=== PATIENT | female | born 1975 | race Caucasian/White ===

== ENCOUNTER 2022-04-26 15:14 | Outpatient (REF) | payer BC, SELFPAY ==
[2022-04-26 15:15] LABS: Abs Immature Grans 0.01 10^3/uL (0.0-0.06); Absolute Basophil Count 0.02 10^3/uL (0.0-0.2); Absolute Eosinophil Count 0.11 10^3/uL (0.0-0.7); Absolute Monocyte Count 0.32 10^3/uL (0.1-0.8); Basophils % 0.5; Eosinophils % 2.6; HCT 41.5 % (36.0-46.0); HGB 13.3 g/dL (11.2-15.7); Immature Grans % 0.2; Lymphocytes % 32.9; MCH 25.2 pg (27.0-33.0); MCV 79 fL (80-95); MPV 10.2 fL (8.0-11.0); Monocytes % 7.5; Neutrophils % 56.3; Platelet Count 284 10^3/uL (130-400); RBC 5.27 10^6/uL (3.93-5.22); RDW 14.5 % (11.7-14.6); RDW-SD 41.1 fL; WBC 4.26 10^3/uL (4.4-10.8)
[2022-04-26 15:35] LABS: Hemoglobin A1C 5.8 % (<5.7)
[2022-04-26 16:03] LABS: ALT 23 U/L (14-59); AST 17 U/L (15-37); Albumin 3.8 g/dL (3.4-5.0); Alkaline Phosphatase 57 U/L (46-116); Anion Gap 11.6 mmol/L (3-11); BUN 11 mg/dL (7-18); Bilirubin, Total 0.3 mg/dL (0.2-1.0); CO2 25.4 mmol/L (21.0-32.0); CREATININE 0.8 mg/dL (0.55-1.02); Calcium 9.2 mg/dL (8.5-10.1); Chloride 104 mmol/L (98-107); Estimated GFR 90.27 (mL/min/1.73m2); Glucose 103 mg/dL (74-106); Potassium 4.4 mmol/L (3.5-5.1); Sodium 141 mmol/L (136-145); TSH (W/Ref FT4) 2.64 uIU/mL (0.36-3.74); Total Protein 6.8 g/dL (6.4-8.2)
[2022-04-26 16:20] LABS: Iron 41 ug/dL (50-170); Total Iron Binding Capacity 344 ug/dL (250-450); Transferrin Sat 12 % (15-50)
== END 2022-04-26 15:15 | disposition home or self-care (01) ==
LOC: NCHCN 15:14
PROVIDERS: PCP Nurse Practitioner Family; Visit Provider Nurse Practitioner Family
DX: R73.09 Other abnormal glucose (principal); Z83.49 Family history of other endocrine, nutritional and metabolic diseases
CPT/HCPCS: 80053; 83036; 83540; 83550; 84443; 85025

== ENCOUNTER 2022-06-21 00:05 | Outpatient (CLI) | payer BC, SELFPAY ==
--- NOTE | 2022-06-21 07:50 | DI.MAMMO_ITS ---
Exam(s) MAMMO SCREENING EXAM: MAMMO SCREENING CLINICAL HISTORY: SCREENING, Z12.39, PREVENTIVE HEALTH CARE,Z00.00 TECHNIQUE: Mammograms were interpreted according to the usual protocol including computer analysis w [employer] CAD system, tomosynthesis and C-view imaging. COMPARISON: 2013 through 2021 from [facility] FINDINGS: The breasts are composed of scattered fibroglandular densities, Breast Density category B. No suspicious masses or suspicious microcalcifications are seen. No skin thickening or abnormal axillary lymph nodes are seen. There has been no significant change from prior exams. IMPRESSION: BI-RADS Category 1, Negative mammogram Yearly screening mammography is recommended. Breast Density - Category B, scattered fibroglandular densities. A negative radiographic report should not delay biopsy if a dominant or clinically suspicious mass is present. Up to ten percent of cancers are not identified on mammography. A negative report may reinforce clinical impression. Adenosis and dense breasts may obscure an underlying neoplasm. False positive reports average 6 to 10%. Patient will receive a letter notifying them of these results.
== END 2022-06-21 00:25 ==
LOC: DI 00:06
PROVIDERS: PCP Nurse Practitioner Family; Visit Provider Nurse Practitioner Family
DX: Z12.31 Encounter for screening mammogram for malignant neoplasm of breast
CPT/HCPCS: 77063; 77067

== ENCOUNTER 2022-10-11 09:02 | Outpatient (REF) | payer BC, SELFPAY ==
[2022-10-11 16:14] LABS: Absolute Basophil Count 0.03 10^3/uL (0.0-0.2); Absolute Eosinophil Count 0.09 10^3/uL (0.0-0.7); Absolute Lymphocyte Count 1.34 10^3/uL (1.2-3.4); Absolute Monocyte Count 0.31 10^3/uL (0.1-0.8); Absolute Neutrophil Count 2.19 10^3/uL (1.2-6.7); Basophils % 0.8; Eosinophils % 2.3; HCT 41.9 % (36.0-46.0); HGB 13.3 g/dL (11.2-15.7); Lymphocytes % 33.8; MCH 25.5 pg (27.0-33.0); MCHC 31.7 % (32.0-36.0); MCV 80 fL (80-95); MPV 11.2 fL (8.0-11.0); Monocytes % 7.8; Neutrophils % 55.3; Platelet Count 220 10^3/uL (130-400); RBC 5.21 10^6/uL (3.93-5.22); RDW 14.5 % (11.7-14.6); RDW-SD 42.1 fL; WBC 3.96 10^3/uL (4.4-10.8)
[2022-10-11 17:09] LABS: Calculated LDL 98 mg/dL (<100); Cholesterol 153 mg/dL (<200); HDL Cholesterol 46 mg/dL (40-60); Triglyceride 48 mg/dL (<150)
[2022-10-11 17:38] LABS: Iron 45 ug/dL (50-170); Total Iron Binding Capacity 342 ug/dL (250-450); Transferrin Sat 13 % (15-50)
[2022-10-11 18:01] LABS: Hemoglobin A1C 5.5 % (<5.7)
== END 2022-10-11 09:03 | disposition home or self-care (01) ==
LOC: NCHCN 09:02
PROVIDERS: PCP Nurse Practitioner Family; Visit Provider Nurse Practitioner Family
DX: D50.9 Iron deficiency anemia, unspecified (principal); R73.03 Prediabetes; E66.9 Obesity, unspecified; Z13.220 Encounter for screening for lipoid disorders
CPT/HCPCS: 80061; 83036; 83540; 83550; 85025

== ENCOUNTER 2022-10-25 01:55 | Outpatient (CLI) | payer BC, SELFPAY ==
[2022-10-25 10:52] LABS: Ferritin 36 ng/mL (8-252); Folate 18.8 ng/mL (8.6-20.0); Vitamin B12 257 pg/mL (193-986)
== END 2022-10-25 01:56 | disposition home or self-care (01) ==
LOC: LBO 01:55
PROVIDERS: PCP Nurse Practitioner Family; Visit Provider Surgery
DX: D50.9 Iron deficiency anemia, unspecified (principal); K62.89 Other specified diseases of anus and rectum; R19.4 Change in bowel habit
CPT/HCPCS: 36415; 82607; 82728; 82746

== ENCOUNTER 2022-10-25 09:39 | Day surgery (SDC) | payer BC, SELFPAY ==
--- NOTE | 2022-10-24 12:53 | COLE_ITS ---
Date of service: 10/25/22 Time of Service: 11:19 Colonoscopy Report Date of procedure: 10/25/22 Pre-op diagnosis general: CRC screening/Fe defn anemia/rectal pain/dairrhea Post-op diagnosis procedure note: other (small polyp/anal fissure) Surgeon: Geri Ly Anesthesia Type: General:No Airway Estimated blood loss (mL): 1 Pathology: other Complications: None Disposition: same day Prep: Miralax/Dulcolax Retraction Time: 13 Procedure Description: After informed consent was obtained the patient was taken to the procedure room and placed in a left decubitous position. Monitors were applied and a time out was done. The patients name, date of , procedure, allergies to medications and metal in their body was reviewed. The patient was then sedated. Once sedated and comfortable a rectal exam was done. External exam was normal. Internal exam revealed a normal sphincter tone and no palpable masses. The scope was then introduced and retrofelexed. No internal hemorrhoids were identified; internal hemorrhoidal tag x1. 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 the scope was then advanced to the cecum w/out difficulty. The TI and appendiceal orifice were identified. The prep was BBPS 3 in all segments for total of 9. The scope was then slowly retracted over 13 minutes back into the rectum. She has a flat 5 mm polyp in the rectum that is removed with a cold biopsy forcep. All specimen is retrieved and no bleeding is noted. There are no polyps or AVMs noted. the scope was removed and the patient was woken up and taken back to Same day surgery in sta ble condition. The patient tolerated the procedure well and there were no immediate complications. Follow up: The patient should follow up in 7-10 years, path pd, unless they develop changes in bowel habits or other new gastrointestinal complaints.
--- NOTE | 2022-10-24 12:54 | PDOC.DSDIS_ITS ---
Date of service: 10/25/22 Time of Service: 11:15 Discharge Plan Disposition Patient Disposition: Home Condition: Good Discharge Details Reason For Visit: Colonoscopy Attending Provider: Geri Ly Primary Care Provider: Jaci Sauer Home Meds and New Rx's Prescriptions: Continued ferrous gluconate 324 mg (38 mg iron) tablet 324 mg PO DAILY ibuprofen 200 mg tablet 600 mg PO Q6H PRN Excedrin Migraine 250-250-65 mg tablet 1 tab PO ONCE PRN Discontinued bisacodyl [Dulcolax (bisacodyl)] 5 mg tablet,delayed release (DR/EC) 5 mg PO ONCE Qty: 4 0RF Rx Instructions: take per colonoscopy instructions polyethylene glycol 3350 17 gram/dose powder 238 g PO ONCE Qty: 238 0RF Rx Instructions: take per colonoscopy instructions Discharge Instructions Additional Instructions: DSU Colonoscopy Post- Op Instructions Instructions for Everyone who is given Anesthesia: For your safety, please do the following for the next twenty-four (24) hours: *Do Not operate a motor vehicle (car, truck, motorcycle, etc.) *Do Not drink alcoholic beverages or use any recreational drugs for the first 24 hours or while taking pain medications. The medications in your body may have a reaction that can be dangerous. *Do Not make any important decisions or sign any important papers. Findings: Anal fissure small polyp Follow up: 4-6 wks -see hand out 1. No lifting over 20 pounds or strenuous activity for the first 24 hours after your procedure. After 24 hours there are no restrictions on your activity but you may feel fatigued for a few days. 2. After you arrive home you may have a light meal and return to your normal diet as you can tolerate it without feeling sick to your stomach. 3. You may have a bloated, gaseous feeling in your belly (abdomen) after a colonoscopy. Passing gas and belching will help. Walking or lying down on your left side with your knees flexed may relieve the discomfort. Call the office at [phone] (Office) or [phone] (Hospital) right away if you notice any of the following: a.Vomiting of blood or ?coffee ground stools?. b.Rectal bleeding 1Tbsp, blood clots or continuous bleeding. c.Severe belly (abdominal) pain. d.A hard distended belly (abdomen) and an inability to pass gas. 4. Please don?t expect to have a normal BM (bowel movement) for 2-3 days after your procedure. 5. If there are questions regarding the findings of your procedure, please contact your doctor 6. If you are unable to contact your doctor with a problem, contact the hospital at [phone]. 7. Continue all your regular medications unless directed otherwise. I understand the above instructions and have no questions. Signature of Patient or Adult Escort Name of Responsible Adult Escort Signature of Nurse Date/Time Activity:: See above Diet:: See above Discharge Orders Discharge Orders: Discharge Order (Routine); Ordered 10/25/22 Ordered By: Geri Ly DS: Diagnosis Discharge Diagnosis (1) Other iron deficiency anemias: Status: Acute (2) Iron deficiency anemia due to chronic blood loss: Status: Acute (3) Anemia, iron deficiency: Status: Acute (4) Change in bowel habits: Status: Acute (5) Rectal pain: Status: Acute (6) Menorrhagia: (7) Hx of essential hypertension: (8) Obesity: (9) Prediabetes: (10) Anxiety: Status: Chronic (11) Screening for malignant neoplasm of colon performed: Status: Acute Asessment and Plan: The patient is seen and examined after their colonoscopy.? The patient has been able to pass gas.? They are not having abdominal pain.? They have been able to t olerate liquids and a snack.? They do not have any nausea or vomiting.? They are not having any chest pain or shortness of breath.??? They are not having any rectal bleeding. Their vital signs have been stable-see nursing notes. We discussed findings during their colonoscopy, and any biopsies that were done/polyps that were removed. The patient will be sent a letter with any biopsy results, and when to repeat the colonoscopy.-see discharge instructions. Patient was given explicit instructions to follow-up regarding colonoscopy-refer to discharge instructions.? We reviewed resumption of medications. Patient verbalized understanding and discharged in stable and satisfactory condition- See nursing notes. (12) Colon polyp: Status: Acute (13) Chronic anal fissure: Status: Acute
--- NOTE | 2022-10-25 10:12 | ANES.PREOP_ITS ---
General Info Date of Service Date Performed: 10/25/22 Height: 5 ft 6 in Weight: 100.754 kg Body Mass Index (BMI): 35.8 Surgical Procedure: Operation Date: 10/25/22 10:35 Proposed Procedure Side Surgeon preston Ly, Meds Allergies and Home Medications Allergies Allergy/AdvReac Type Severity Reaction Status Date / Time codeine AdvReac Severe vomiting Verified 10/25/22 10:23 Home Medication Medication Instructions Recorded tbexirb-zisshiczdoaaz-cdujnrrm 250 1 tab PO ONCE PRN 10/10/22 mg-250 mg-65 mg tablet (Excedrin Migraine) ferrous gluconate 324 mg (38 mg 324 mg PO DAILY 10/10/22 iron) tablet ibuprofen 200 mg tablet 600 mg PO Q6H PRN 10/10/22 Current Visit Medications: Current Medications Generic Name Dose Route Start Last Admin Trade Name Freq PRN Reason Stop Dose Admin Hyoscyamine Sulfate 0.125 mg 10/25/22 00:44 Hyoscyamine 0.125 Mg Sl/Oral/Chew SL 11/24/22 00:43 DIRECTED PRN Iron Sucrose 200 mg/ Sodium 110 mls @ 400 mls/hr 10/25/22 10:30 Chloride IVPB 10/25/22 18:00 TODAY@1030 BERT Ringer's Solution 1,000 mls @ 80 mls/hr 10/25/22 06:00 IV 11/23/22 23:59 [facility] IV Miscellaneous Supplies 1 each 10/25/22 06:00 Iv Access IV 11/23/22 23:59 DIRECTED BERT Ondansetron HCl 4 mg 10/25/22 00:44 Ondansetron 4 Mg/2 Ml Vial IVP 11/24/22 00:43 Q4H PRN PRN Nausea / Vomiting Sodium Chloride 0 ml 10/25/22 06:00 Normal Saline Flush 10 Ml Syr IV 11/23/22 23:59 PRN PRN Sodium Chloride 0 ml 10/25/22 06:00 Normal Saline 10 Ml Vial IJ 11/23/22 23:59 DIRECTED PRN Sterile Water 0 ml 10/25/22 06:00 Water,Injection,Sterile 10 Ml Vial IJ 11/23/22 23:59 DIRECTED PRN PFSH Active Problems Active Problems: Problem Status Onset Code Screening for malignant neoplasm of colon performed Z12.11 Anxiety F41.9 Other iron deficiency anemias D50.8 Iron deficiency anemia due to chronic blood loss D50.0 Anemia, iron deficiency D50.9 Change in bowel habits R19.4 Rectal pain K62.89 Medical History Medical History Family history of thyroid disease Hx of essential hypertension Menorrhagia Neck pain Obesity Prediabetes Surgical History Surgical History (Updated 10/25/22 @ 10:23 by Kavita Gomez) Hx of wisdom tooth extraction Tobacco Smoking/Tobacco Use Status: Never Alcohol Alcohol Intake: current Alcohol intake frequency: a few times a week Substance Use Substance use: Never Substance use type: does not use Vital Signs and Lab Results Lab Results Blood Type / Crossmatch: No Data to Display Complete Blood Count: White Blood Count 3.96 10^3/uL (4.4-10.8) L 10/11/22 07:30 Red Blood Count 5.21 10^6/uL (3.93-5.22) 10/11/22 07:30 Hemoglobin 13.3 g/dL (11.2-15.7) 10/11/22 07:30 Hematocrit 41.9 % (36.0-46.0) 10/11/22 07:30 Platelet Count 220 10^3/uL (130-400) 10/11/22 07:30 Complete Metabolic Panel: Hemoglobin A1c 5.5 % (<5.7) 10/11/22 07:30 Liver Function Panel: No Data to Display Coagulation Panel: No Data to Display Cardiac Panel: No Data to Display Arterial Blood Gas: No Data to Display Venous Blood Gas: No Data to Display Pancreas Panel: No Data to Display Thyroid Panel: No Data to Display Infectious Disease: No Data to Display Blood Cultures: No Data to Display Toxicology Panel: No Data to Display Panel: No Data to Display Anesthesia Assessment and Plan Anesthesia History Personal History: No History of Anesthesia Complications Family History: No Family History of Anesthesia Complications Exercise Tolerance Exercise Tolerance: Metabolic Equivalents>4 Pertinent Negatives Pertinent Negatives: No Symptoms of GERD Cardiac & Pulmonary Exam Cardiac Exam: Normal S1/S2 Heart Sounds Pulmonary Exam: Clear Bilateral Breath Sounds Implantable Cardiac Device Does patient have a Pacemaker or an ICD?: No Airway Exam Known Difficult Airway: No Mallampati Class: 3 Mouth Opening: Normal (> 3cm) Thyromental Distance: Greater than 3 cm Neck Range of Motion: Full ROM Neck Circumference: Normal Teeth Condition: Normal Dentition ASA Classification ASA Score: ASA 2 Emergency Case?: No NPO Status NPO Status: NPO Clears >2 hours, Solids >8 hours Status Status: Negative HCG Anesthesia Plan Resuscitation Status: Full Code Anesthesia Technique: General Anesthesia Airway Planned: Natural Airway Monitors Used: Standard Monitors Preoperative Comments:: High anxiety. J Luis give MKO PRE IV
[2022-10-25 10:18] VITALS: BP 133/87; PULSE 68; RESP 16; TEMP 36.4; O2SAT 98
[2022-10-25 10:26] VITALS: BMI 35.8
[2022-10-25] MEDS: Lactated Ringers 1,000 ML 80 ML IV (10:45)
--- NOTE | 2022-10-25 11:05 | BOWEL_PTH ---
PATIENT: Karina Bedolla LOC: [facility] U#:[id number] AGE/SX: 47/F ROOM: RE10/25/[address]: Geri Ly : 1975 BED: DIS: 10/25/2022 SPEC #: [id number] RECD: 10/25/22 12:35 STATUS: GAURI REQ #: [id number] ANNIE: 10/25/22 11:[address]: Geri Ly DEPT: Surgical Specimen RECD BY: Dasha Arita ENTERED: 10/25/22 12:36 SP TYPE: Bowel OTHR DR: LOIDA GIFFORD Tissues: 1 - BIOPSY BOWEL Procedures: GROSS AND MICRO LEVEL 4 Comments: [id number]
[2022-10-25 11:15] VITALS: BP 125/78; PULSE 69; RESP 16; TEMP 36.3; O2SAT 97
[2022-10-25] MEDS: IRON SUCROSE COMPLEX 200 MG in Normal Saline 100 ML 400 MG IVPB (11:23)
[2022-10-25 11:45] VITALS: BP 115/79; PULSE 53; RESP 16; TEMP 36.5; O2SAT 96
--- NOTE | 2022-10-25 11:51 | W.ANESPOSTOP ---
Postoperative Evaluation Date, Time and Location Date Performed: 10/25/22 Time Performed: 11:53 Patient Location: Day Surgery Unit Vital Signs Most Recent Imported Vital Signs: Most Recent Vital Signs Temp Pulse Resp BP Pulse Ox 36.5 C 53 L 16 115/79 96 10/25/22 11:45 10/25/22 11:45 10/25/22 11:45 10/25/22 11:45 10/25/22 11:45 Pain Score Most Recent Pain Score: Most Recent Pain Score Pain Level 0 10/25/22 10:18 Assessment Mental Status: Awake (Alert & Oriented to Patient Baseline) Airway and Respiratory Function: Patent airway with normal (patient baseline) respiratory exam Cardiovascular Function: Hemodynamically Stable Hydration Status: Adequately Hydrated Nausea & Vomiting: No Nausea or Vomiting Pain: Pt. Denies Any Pain Peripheral Nerve Block: Patient did not receive a nerve block
== END 2022-10-25 12:15 | disposition home or self-care (01) ==
PROVIDERS: PCP Nurse Practitioner Family; Visit Provider Surgery
PROC: 0DJD8ZZ Inspection of Lower Intestinal Tract, Via Natural or Artificial Opening Endoscopic (ICD-10-PCS; CPT 45378; principal; 2022-10-25 10:30)
DX: Z12.11 Encounter for screening for malignant neoplasm of colon (principal); K60.1 Chronic anal fissure; K62.1 Rectal polyp; D50.9 Iron deficiency anemia, unspecified; R19.7 Diarrhea, unspecified
CPT/HCPCS: 45380; 81025; 88305; 82607; 82746; J1756

== ENCOUNTER 2022-12-05 09:05 | Outpatient (CLI) | payer BC, SELFPAY ==
[2022-12-05 08:06] LABS: Absolute Basophil Count 0.03 10^3/uL (0.0-0.2); Absolute Eosinophil Count 0.11 10^3/uL (0.0-0.7); Absolute Lymphocyte Count 1.66 10^3/uL (1.2-3.4); Absolute Monocyte Count 0.32 10^3/uL (0.1-0.8); Absolute Neutrophil Count 2.21 10^3/uL (1.2-6.7); Basophils % 0.7; Eosinophils % 2.5; HCT 45.1 % (36.0-46.0); HGB 14.6 g/dL (11.2-15.7); Lymphocytes % 38.3; MCH 26.2 pg (27.0-33.0); MCHC 32.4 % (32.0-36.0); MCV 81 fL (80-95); MPV 9.3 fL (8.0-11.0); Monocytes % 7.4; Neutrophils % 51.1; Platelet Count 240 10^3/uL (130-400); RBC 5.57 10^6/uL (3.93-5.22); RDW 14.5 % (11.7-14.6); RDW-SD 42.1 fL; WBC 4.33 10^3/uL (4.4-10.8)
[2022-12-05 08:57] LABS: Ferritin 46 ng/mL (8-252)
== END 2022-12-05 09:06 | disposition home or self-care (01) ==
LOC: LBO 09:08
PROVIDERS: PCP Nurse Practitioner Family; Visit Provider Surgery
DX: D50.0 Iron deficiency anemia secondary to blood loss (chronic) (principal); N92.0 Excessive and frequent menstruation with regular cycle
CPT/HCPCS: 36415; 82728; 85025

== ENCOUNTER 2023-09-02 16:05 | Outpatient (REF) | payer BC, SELFPAY ==
--- NOTE | 2023-09-02 15:40 | PAPFT_PTH ---
PATIENT: Karina Bedolla LOC: [facility] U#:[id number] AGE/SX: 48/F ROOM: RE09/02/[address]: Dorota Lee MD : 1975 BED: DIS: 09/02/2023 SPEC #: [id number] RECD: 09/02/23 18:05 STATUS: GAURI REQ #: [id number] ANNIE: 09/02/23 15:[address]: Dorota Lee DEPT: [facility] Cytology RECD BY: Maeve High ENTERED: 09/02/23 18:05 SP TYPE: PAPFT OTHR DR: Unknown,Unknown Tissues: 1 - CX/ENDOCX FOR PAP SMEARS Procedures: PAP THIN PREP/UVM Screening HPV DNA PROBE Comments: [id number] (HPV 16 & 18/45)
== END 2023-09-02 16:06 | disposition home or self-care (01) ==
LOC: LBN 16:05
PROVIDERS: Visit Provider Obstetrics & Gynecology
DX: Z01.419 Encounter for gynecological examination (general) (routine) without abnormal findings (principal)
CPT/HCPCS: 88142; 87624

== ENCOUNTER → 2023-09-11 00:56 | Outpatient (CLI) | payer BC, SELFPAY ==
--- OUTSIDE RECORDS SUMMARY | 2023-09-11 00:58 | XMS_ITS | Referral Summary ---
Author Organization [facility] Address [address] [place] [address] Care Team Providers Care Fractionation Supervisor Name Role Phone Jaci Sauer CAROLINE Primary Care Provider [phone] Encounters Date Type Department Care Team Description 09/03/2023 Lab Requisition [facility] Pathology & Laboratory Medicine - [facility] [address] [place] [address] Dorota Lee MD Encounter for other general examination from Last 3 Months Social History Tobacco Use Types Packs/Day Years Used Date Smoking Tobacco: Never Assessed Sex and Gender Information Value Date Recorded Sex Assigned at Not on file Gender Identity Not on file Sexual Orientation Not on file Plan of Treatment Not on file Procedures Procedure Name Priority Date/Time Associated Diagnosis Comments PAP TEST Today 09/02/2023 15:40 EDT Encounter for other general examination HPV DNA DETECTION WITH GENOTYPING, PCR Today 09/02/2023 15:40 EDT Encounter for other general examination from Last 3 Months Results * PAP TEST (09/02/2023 15:40 EDT) Specimens A. Cervix and/or Endocervix , ThinPrep Imaging System with Manual Evaluation 09/08/2023 14:55 T [facility] Specimen Adequacy Satisfactory for Evaluation - transformation zone component present 09/08/2023 14:55 T [facility] General Categorization Epithelial Cell Abnormality 09/08/2023 14:55 T [facility] Descriptive Diagnosis Squamous Cell Abnormality - Atypical squamous cells, undetermined significance (ASC-US). 09/08/2023 14:55 T [facility] Educational Comments [facility] recommends following the ASCCP's management guidelines which may be found at www.asccp.org 09/08/2023 14:55 [facility] Attestation By the signature below, the attending physician certifies that they have personally conducted a gross and/or microscopic examination of the described specimens and rendered or confirmed the above diagnosis. 09/08/2023 14:55 [facility] at 1455 Clinical History See below 09/08/19 14:55 [facility] Performing Lab [facility] 09/08/2023 14:55 [facility] Scanned Images 09/08/2023 14:55 [facility] HPV High Risk type 16, PCR Negative 09/08/2023 14:55 EDT [facility] HPV High Risk type 18, PCR Negative 09/08/2023 14:55 [facility] HPV Other High Risk Types, PCR Negative The following Other High Risk HPV types were not detected: 31,33, 35, 39, 45, 51, 52, 56, 58, 59, 66 and 68. 09/08/2023 14:55 [facility] Pap Test CERVIX UTERI STRUCTURE / Unknown 09/02/2023 15:40 EDT 09/03/2023 10:39 EDT Dorota Lee MD PATHOLOGY ORDERABLES [facility] [address] [place] [id number] * HPV DNA DETECTION WITH GENOTYPING, PCR (09/02/2023 15:40 EDT) HPV High Risk type 16, PCR Negative Negative 09/08/2023 14:55 EDT [facility] HPV High Risk type 18, PCR Negative Negative 09/08/2023 14:55 T [facility] HPV other High Risk types, PCR Negative Negative 09/08/2023 14:55 T [facility] Comment: The following Other High Risk HPV types were not detected: ??31,33, 35, 39, 45, 51, 52, 56, 58, 59, 66 and 68. Pap Test CERVIX UTERI STRUCTURE / Unknown 09/02/2023 15:40 EDT 09/05/2023 15:32 EDT Dorota Lee MD MICROBIOLOGY - GENER AL ORDERABLES [facility] [address] [place], [place] [address] from Last 3 Months Care Teams Fractionation Supervisor Relationship Specialty Start Date End Date Jaci Sauer FNP [address] [place] [id number] PCP - General Family Medicine - Primary Care 09/17/22
--- OUTSIDE RECORDS SUMMARY | 2023-09-11 00:58 | XMS_ITS | Encounter Summary ---
Author Organization [facility] Address [address] [place] [address] Care Team Providers Care Studio Receptionist Name Role Phone Jaci Sauer CAROLINE Primary Care Provider Encounter Details Date Type Department Care Team (Late st Contact Info) Description 10/25/2022 Lab Requisition [facility] Pathology & Laboratory Medicine - [place] [address] [place] [address] Geri Ly, DO [address] [place], [place] [id number] Chronic anal fissure; Polyp of colon; Encounter for screening for malignant neoplasm of colon; Other specified diseases of anus and rectum; Change in bowel habit Social History Tobacco Use Types Packs/Day Years Used Date Smoking Tobacco: Never Assessed Sex and Gender Information Value Date Recorded Sex Assigned at Not on file Gender Identity Not on file Sexual Orientation Not on file documented as of this encounter Plan of Treatment Not on file documented as of this encounter Procedures Procedure Name Priority Date/Time Associated Diagnosis Comments SURGICAL PATHOLOGY Today 10/25/2022 11 :05 EDT Chronic anal fissure Polyp of colon Encounter for screening for malignant neoplasm of colon Other specified diseases of anus and rectum Change in bowel habit documented in this encounter Results * SURGICAL PATHOLOGY (10/25/2022 11:05 EDT) Note to Patient The following pathology results have been interpreted by your pathologist and may be available to you before your health provider has had the opportunity to review them. Please allow time for your provider to receive these results and explore management options, if applicable. 10/29/2022 10:43 EDT [facility] Final Diagnosis A. RECTUM, POLYP, BIOPSY: - Hyperplastic polyp. 10/29/2022 10:43 EDT [facility] Attestation There was significant resident/fellow involvement in the diagnostic evaluation of this case. By the signature below, the attending physician certifies that they have personally conducted a gross and/or microscopic examination of the described specimens and rendered or confirmed the above diagnosis. 10/29/2022 10:43 EDT [facility] at 1043 Clinical History Anemia + rectal pain, sm EH tag; fissure 6 o'clock 10/29/2022 10:43 EDT [facility] Gross Description A. Received in formalin labelled with proper patient identification (initials M, B) and 1. Rectal polyp are 2 garrett-white tissues (0.4 x 0.2 x 0.1 cm and 0.3 x 0.2 by less than 0.1 cm). Entirely submitted in A1. Massiel Schuler 10/26/2022 13:54 10/29/2022 10:43 EDT [facility] Resident/[place] w: Marilyn Armas MD PhD 10/29/2022 10:43 [facility] Performing Lab [facility] 10/29/2022 10:43 [facility] Scanned Images 10/29/2022 10:43 [facility] Tissue SPECIMEN FROM RECTUM / Unknown 10/25/2022 11:05 EDT 10/25/2022 17:56 EDT Geri Ly DO PATHOLOGY ORDERABLES [facility] [address] [place] [address] documented in this encounter Visit Diagnoses Diagnosis Chronic anal fissure Anal fissure Polyp of colon Benign neoplasm of colon Encounter for screening for malignant neoplasm of colon Special screening for malignant neoplasms, colon Other specified diseases of anus and rectum Change in bowel habit documented in this encounter Care Teams Studio Receptionist Relationship Specialty Start Date End Date Jaci Sauer FNP [address] [place] [phone] PCP - General Family Medicine - Primary Care 09/17/22 documented as of this encounter
--- OUTSIDE RECORDS SUMMARY | 2023-09-11 00:58 | XMS_ITS | Encounter Summary ---
Author Organization [facility] Address [address] [place] [address] Care Team Providers Care Merchandise For Resale Purchasing Agent Name Role Phone Jaci Sauer CAROLINE Primary Care Provider [phone] Encounter Details Date Type Department Care Team (Late st Contact Info) Description 09/03/2023 Lab Requisition [facility] Pathology & Laboratory Medicine - [address] [address] Dorota Lee MD [address] [place] [address] [place] [address] Encounter for other general examination Social History Tobacco Use Types Packs/Day Years [...] 15:40 EDT Encounter for other general examination documented in this encounter Results * HPV DNA DETECTION WITH GENOTYPING, PCR (09/02/2023 15:40 EDT) HPV High Risk type 16, PCR Negative Negative 09/08/2023 14:55 EDT [facility] HPV High Risk type 18, PCR Negative Negative 09/08/2023 14:55 EDT [facility] HPV other High Risk types, PCR Negative Negative 09/08/2023 14:55 EDT [facility] Comment: The following Other High Risk HPV types were not detected: ??31,33, 35, 39, 45, 51, 52, 56, 58, 59, 66 and 68. Pap Test CERVIX UTERI STRUCTURE / Unknown 09/02/2023 15:40 EDT 09/05/2023 15:32 EDT Dorota Lee MD MICROBIOLOGY - GENER AL ORDERABLES [facility] [address] [place], [place] [id number] * PAP TEST (09/02/2023 15:40 EDT) Specimens A. Cervix and/or Endocervix , ThinPrep Imaging System with Manual Evaluation 09/08/2023 14:55 [facility] Specimen Adequacy Satisfactory for Evaluation - transformation zone component present 09/08/2023 14:55 [facility] General Categorization Epithelial Cell Abnormality 09/08/2023 14:55 [facility] Descriptive Diagnosis Squamous Cell Abnormality - Atypical squamous cells, undetermined significance (ASC-US). 09/08/2023 14:55 [facility] Educational Comments [facility] recommends following the ASCCP's management guidelines which may be found at www.asccp.org 09/08/2023 14:55 [facility] Attestation By the signature below, the attending physician certifies that they have personally conducted a gross and/or microscopic examination of the described specimens and rendered or confirmed the above diagnosis. 09/08/2023 14:55 [facility] at 6060 Clinical History See below 09/08/19 14:55 [facility] Performing Lab [facility] 09/08/2023 14:55 [facility] Scanned Images 09/08/2023 14:55 [facility] HPV High Risk type 16, PCR Negative 09/08/2023 14:55 [facility] HPV High Risk type 18, PCR Negative 09/08/2023 14:55 [facility] HPV Other High Risk Types, PCR Negative The following Other High Risk HPV types were not detected: 31,33, 35, 39, 45, 51, 52, 56, 58, 59, 66 and 68. 09/08/2023 14:55 EDT [facility] Pap Test CERVIX UTERI STRUCTURE / Unknown 09/02/2023 15:40 EDT 09/03/2023 10:39 EDT Dorota Lee MD PATHOLOGY ORDERABLES [facility] [address] [place] [address] documented in this encounter Visit Diagnoses Diagnosis Encounter for other general examination documented in this encounter Care Teams Merchandise For Resale Purchasing Agent Relationship Specialty Start Date End Date Jaci Sauer FNP [address] [place] [id number] PCP - General Family Medicine - Primary Care 09/17/22 documented as of this encounter
--- OUTSIDE RECORDS SUMMARY | 2023-09-11 00:58 | XMS_ITS | Clinical Summary ---
Author Organization [facility] Address [address] [place] [address] Care Team Providers Care Stream Control Officer Name Role Phone Jaci Sauer CAROLINE Primary Care Provider [phone] Encounters Date Type Department Care Team Description 09/03/2023 Lab Requisition [facility] Pathology & Laboratory Medicine - [facility] [address] [place] [address] Dortoa Lee MD Encounter for other general examination from Last 3 Months Social History Tobacco Use Types Packs/Day Years Used Date Smoking Tobacco: Never Assessed Sex and Gender Information Value Date Recorded Sex Assigned at Not on file Gender Identity Not on file Sexual Orientation Not on file Plan of Treatment Health Maintenance Due Date Last Done Comments Hepatitis C Screen 1975 Hepatitis B Vaccine (1 of 3 - 19+ 3-dose series) 02/02 COVID-19 Vaccine ( season) 2022 Procedures Procedure Name Priority Date/Time Associated Diagnosis Comments PAP TEST Today 09/02/2023 15:40 EDT Encounter for other general examination HPV DNA DETECTION WITH GENOTYPING, PCR Today 09/02/2023 15:40 EDT Encounter for other general examination from Last 3 Months Results * PAP TEST (09/02/2023 15:40 EDT) Specimens A. Cervix and/or Endocervix , ThinPrep Imaging System with Manual Evaluation 09/08/2023 14:55 EDT [facility] Specimen Adequacy Satisfactory for Evaluation - transformation zone component present 09/08/2023 14:55 EDT [facility] General Categorization Epithelial Cell Abnormality 09/08/2023 14:55 EDT [facility] Descriptive Diagnosis Squamous Cell Abnormality - Atypical squamous cells, undetermined significance (ASC-US). 09/08/2023 14:55 EDT [facility] Educational Comments [facility] recommends following the ASCCP's management guidelines which may be found at www.asccp.org 09/08/2023 14:55 [facility] Attestation By the signature below, the attending physician certifies that they have personally conducted a gross and/or microscopic examination of the described specimens and rendered or confirmed the above diagnosis. 09/08/2023 14:55 [facility] at 1455 Clinical History See below 09/08/19 14:55 T [facility] Performing Lab [facility] 09/08/2023 14:55 [facility] Scanned Images 09/08/2023 14:55 [facility] HPV High Risk type 16, PCR Negative 09/08/2023 14:55 EDT [facility] HPV High Risk type 18, PCR Negative 09/08/2023 14:55 [facility] HPV Other High Risk Types, PCR Negative The following Other High Risk HPV types were not detected: 31,33, 35, 39, 45, 51, 52, 56, 58, 59, 66 and 68. 09/08/2023 14:55 T [facility] Pap Test CERVIX UTERI STRUCTURE / Unknown 09/02/2023 15:40 EDT 09/03/2023 10:39 EDT Dorota Lee MD PATHOLOGY ORDERABLES [facility] [address] [place] [address] * HPV DNA DETECTION WITH GENOTYPING, PCR (09/02/2023 15:40 EDT) HPV High Risk type 16, PCR Negative Negative 09/08/2023 14:55 EDT [facility] HPV High Risk type 18, PCR Negative Negative 09/08/2023 14:55 EDT [facility] HPV other High Risk types, PCR Negative Negative 09/08/2023 14:55 EDT [facility] Comment: The following Other High Risk HPV types were not detected: ??31,33, 35, 39, 45, 51, 52, 56, 58, 59, 66 and 68. Pap Test CERVIX UTERI STRUCTURE / Unknown 09/02/2023 15:40 EDT 09/05/2023 15:32 EDT Dorota Lee MD MICROBIOLOGY - GENER AL ORDERABLES [facility] [address] [place] [address] from Last 3 Months Care Teams Stream Control Officer Relationship Specialty Start Date End Date Jaci Sauer FNP [address] [place] [id number] PCP - General Family Medicine - Primary Care 09/17/22
--- NOTE | 2023-09-11 06:30 | DI.MAMMO_ITS ---
Exam(s) MAMMO SCREENING EXAM: MAMMO SCREENING CLINICAL HISTORY: screening,Z12.31 TECHNIQUE: Bilateral full field digital CC and MLO mammographic images were obtained with 3D tomosyn thesis and utilizing computer aided detection (CAD). COMPARISON: Available for comparison. FINDINGS: Masses/Architectural Distortion: None seen. Microcalcifications: No suspicious pleomorphic-type are seen. Skin Thickening/Nipple Retraction: None. IMPRESSION: 1. No significant interval change with no specific features of malignancy noted. 2. Unless there is more urgent need, screening mammography is recommended, as per [place] [employer] guidelines. BI-RADS Category 1 - Negative Breast Density - Category B - Scattered areas of fibroglandular density Breast density category C or D implies that the patient has dense breast tissue. Dense breast tissue is very common and is not abnormal but dense breast tissue can make it harder to find cancer on a ma mmogram. Also, dense breast tissue may increase their breast cancer risk. This information about the result of the mammogram report was provided to the patient to raise their awareness. Use this report when you speak with the patient about their risks for breast cancer, which includes their family hist ory. At that time, you may recommend for more screening tests (Ultrasound or MRI) as they might be us eful based on their risk. A negative radiographic report should not delay biopsy if a dominant or clinically suspicious mass is present. Up to ten percent of cancers are not identified on mammography. A negative report may reinforce clinical impression. Adenosis and dense breasts may obscure an underlying neoplasm. False positive reports average 6 to 10%. Patient will receive a letter notifying them of these results.
== END ==
PROVIDERS: Visit Provider Obstetrics & Gynecology
DX: Z12.31 Encounter for screening mammogram for malignant neoplasm of breast (principal)
CPT/HCPCS: 77063; 77067

== ENCOUNTER 2024-05-12 16:24 | Outpatient (REF) | payer OTHER, SELFPAY ==
[2024-05-12 16:58] LABS: HCT 44.7 % (36.0-46.0); HGB 14.4 g/dL (11.2-15.7); MCH 27.2 pg (27.0-33.0); MCHC 32.2 % (32.0-36.0); MCV 85 fL (80-95); MPV 9.5 fL (8.0-11.0); Platelet Count 249 10^3/uL (130-400); RBC 5.29 10^6/uL (3.93-5.22); RDW 13.7 % (11.7-14.6); RDW-SD 42.3 fL; WBC 4.24 10^3/uL (4.4-10.8)
[2024-05-12 17:11] LABS: Hemoglobin A1C 5.6 % (<5.7); Iron 53 ug/dL (50-170); Total Iron Binding Capacity 300 ug/dL (250-450); Transferrin Sat 18 % (15-50)
[2024-05-12 17:24] LABS: ALT 26 U/L (14-59); AST 20 U/L (15-37); Albumin 3.9 g/dL (3.4-5.0); Alkaline Phosphatase 57 U/L (46-116); Anion Gap 5.2 mmol/L (3-11); BUN 12 mg/dL (7-18); Bilirubin, Total 0.4 mg/dL (0.2-1.0); CO2 29.8 mmol/L (21.0-32.0); CREATININE 0.7 mg/dL (0.55-1.02); Chloride 107 mmol/L (98-107); Estimated GFR 104.65 (mL/min/1.73m2); Ferritin 50 ng/mL (8-252); Glucose 97 mg/dL (74-106); Potassium 4.2 mmol/L (3.5-5.1); Sodium 142 mmol/L (136-145); Total Protein 6.8 g/dL (6.4-8.2)
== END 2024-05-12 16:25 | disposition home or self-care (01) ==
LOC: NCHCN 16:24
PROVIDERS: Visit Provider Physician Assistant
DX: R73.03 Prediabetes (principal); D50.9 Iron deficiency anemia, unspecified
CPT/HCPCS: 80053; 85027; 82728; 83036; 83540; 83550

== ENCOUNTER 2024-09-08 17:51 | Outpatient (REF) | payer OTHER, SELFPAY ==
--- NOTE | 2024-09-08 16:00 | PAPFT_PTH ---
PATIENT: Karina Bedolla LOC: [facility] U#:[id number] AGE/SX: 49/F ROOM: RE09/08/[address]: Dorota Lee MD : 1975 BED: DIS: 09/08/2024 SPEC #: [id number] RECD: 09/08/24 17:53 STATUS: GAURI REQ #: [id number] ANNIE: 09/08/24 16:[address]: Dorota Lee DEPT: [facility] Cytology RECD BY: Maeve High ENTERED: 09/08/24 17:53 SP TYPE: PAPFT OTHR DR: Rodriguez Howard Tissues: 1 - CX/ENDOCX FOR PAP SMEARS Procedures: PAP THIN PREP/[facility] Screening HPV DNA PROBE Comments: [id number] (HPV 16 & 18/45)
== END 2024-09-08 17:52 | disposition home or self-care (01) ==
LOC: LBN 17:51
PROVIDERS: PCP Physician Assistant; Visit Provider Obstetrics & Gynecology
DX: Z12.4 Encounter for screening for malignant neoplasm of cervix (principal)
CPT/HCPCS: 88142; 87624

== ENCOUNTER 2024-09-29 01:28 | Outpatient (CLI) | payer OTHER, SELFPAY ==
--- NOTE | 2024-09-29 06:30 | DI.MAMMO_ITS ---
Exam(s) MAMMO SCREENING EXAM: MAMMO SCREENING CLINICAL HISTORY: screening,z12.31 TECHNIQUE: Bilateral full field digital CC and MLO mammographic images were obtained with 3D tomosynthesis and utilizing computer aided detection (CAD). COMPARISON: Comparison is made with prior examinations. FINDINGS: Masses/Architectural Distortion: No suspicious masses or areas of architectural distortion are present. There is a stable nodule in the outer central right breast. Microcalcifications: No suspicious pleomorphic-type are seen. Skin Thickening/Nipple Retraction: None. IMPRESSION: 1. No significant interval change with no specific features of malignancy noted. 2. Unless there is more urgent need, screening mammography is recommended, as per [place] [employer] guidelines. BI-RADS Category 2 - Benign Findings Breast Density - Category B - There are scattered areas of fibroglandular density. Breast density Category C or D implies that the patient has dense breast tissue. Dense breast tissue can make it harder to find cancer on a mammogram. Dense breast tissue is also associated with an increased risk of breast cancer. This information about the result of the mammogram report was provided to the patient to raise their awareness. Use this report when you speak with the patient about their risks for breast cancer, which includes their family history. At that time, you may recommend additional screening tests (Ultrasound or MRI) as these tests may add significant information. A negative radiographic report should not delay biopsy if a dominant or clinically suspicious mass is present. Up to ten percent of cancers are not identified on mammography. A negative report may reinforce clinical impression. Adenosis and dense breasts may obscure an underlying neoplasm. False positive reports average 6 to 10%. Patient will receive a letter notifying them of these results.
== END 2024-09-29 01:48 ==
LOC: DI 01:28
PROVIDERS: PCP Physician Assistant; Visit Provider Obstetrics & Gynecology
DX: Z12.31 Encounter for screening mammogram for malignant neoplasm of breast (principal); R92.323 Mammographic fibroglandular density, bilateral breasts
CPT/HCPCS: 77063; 77067

== ENCOUNTER 2024-10-06 09:41 | Outpatient (REF) | payer OTHER, SELFPAY ==
--- NOTE | 2024-10-06 09:20 | CER_PTH ---
PATIENT: Karina Bedolla LOC: [facility] U#:[id number] AGE/SX: 49/F ROOM: RE10/06/[address]: Dorota Lee MD : 1975 BED: DIS: 10/06/2024 SPEC #: [id number] RECD: 10/06/24 12:47 STATUS: GAURI REQ #: [id number] ANNIE: 10/06/24 09:[address]: Dorota Lee DEPT: Surgical Specimen RECD BY: Maeve High ENTERED: 10/06/24 12:48 SP TYPE: CER OTHR DR: Rodriguez Howard Tissues: 1 - CERVICAL BIOPSY Procedures: GROSS AND MICRO LEVEL 4 Comments: [id number]
== END 2024-10-06 09:42 | disposition home or self-care (01) ==
LOC: LBN 09:41
PROVIDERS: PCP Physician Assistant; Visit Provider Obstetrics & Gynecology
DX: R87.612 Low grade squamous intraepithelial lesion on cytologic smear of cervix (LGSIL) (principal)
CPT/HCPCS: 88305